=== PATIENT | female | born 2000 | race Caucasian/White ===

== ENCOUNTER 2025-07-08 17:32 | Inpatient (IN) ==
[2025-07-08] MEDS ORDERED: ONDANSETRON INJ 2 MG/ML 2 ML VIAL ONE (18:22)
[2025-07-08] MEDS ORDERED: ROCURONIUM BROMIDE 10 MG/ML 5 ML VIAL IV ONE (18:22)
[2025-07-08] MEDS ORDERED: LIDOCAINE 2% 20 MG/ML 5 ML SYR IV ONE (18:22)
[2025-07-08] MEDS ORDERED: MIDAZOLAM HCL 1 MG/ML 2ML VIAL ONE (18:22)
[2025-07-08] MEDS ORDERED: LIDOCAINE 2% 2 ML VIAL/AMP(20MG/ML) INFIL ONE (18:22)
[2025-07-08] MEDS ORDERED: DEXAMETHASONE SOD INJ 4 MG/ML VIAL ONE (18:22)
[2025-07-08] MEDS ORDERED: PROPOFOL IV EMULSION 10 MG/ML 20 ML VIAL IV ONE (18:22)
--- NOTE | 2025-07-08 18:43 | Anesthesiology Consultation ---
Date of Service July 08, 2025 Assessment & Plan (1) Encounter for pre-operative examination: Chart Review Chart Review: Acceptable Risk for Surgery and Patient NOT seen in Pre Admission Testing Consults Requested none History Surgery Operation Date: 07/08/25 19:30 Proposed Procedures p Laparoscopic Appendectomy - Steven Pedroza DO, FACS Allergies Allergy/AdvReac Type Severity Reaction Status Date / Time No Known Allergies Allergy Verified 02/02/25 17:02 Medications Home Medications Medication Instructions Recorded Confirmed Last Taken cyclobenzaprine 10 mg tablet 10 mg PO TID PRN muscle spasm #15 12/09/24 02/02/25 Unknown tabs Past Medical History Medical History No significant past medical history Past Surgical History Surgical History No significant past surgical history Social History Smoking Status: Never smoker
[2025-07-08] MEDS ORDERED: ONDANSETRON INJ 2 MG/ML 2 ML VIAL IV PRN ×2 (19:21→21:21)
[2025-07-08] MEDS ORDERED: ATROPINE SULFATE 0.1 MG/ML 10ML SYR IV PRN (19:21)
--- NOTE | 2025-07-08 19:23 | History & Physical Report ---
Date of Service July 08, 2025 Assessment & Plan (1) Appendicitis: Plan: Due to the patient's clinical presentation and findings on CT scan she will be admitted to the surgical service proceeding as follows: Will maintain n.p.o. status for the present time Will hydrate with IV fluids Will provide analgesics and antiemetics as needed Will tentatively plan on having the patient undergo an appendectomy with Dr. Pedroza of abdomen if history of general surgery this evening. 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 She says that the pain began yesterday on 07/07/2025. She notes that the pain is generalized throughout her abdomen but is most severe in the right lower quadrant. She has had nausea and vomiting but denies any fevers, shakes, or chills. She notes that she has never had abdominal surgery in the past. Concerning past medical history patient says that she is treated for bronchopulmonary dysplasia, asthma, vitamin D deficiency, and iron deficiency. Concerning past surgical history she has never had surgery before Concerning social history she denies smoking Concerning family history she denies any family history of diabetes While at [facility] the patient had labs and imaging performed. A CT scan of the abdomen pelvis showed the patient had gallstones without evidence of cholecystitis. She had an inflamed appendix measuring approximately 10 mm with concern for acute appendicitis. Labs included CBC white blood cell count was elevated at 7.4. Hemoglobin and hematocrit were 14.1 and 42.2. Platelet count is 262,000. Chemistry profile showed sodium of potassium 139 and 3.9. BUN and creatinine were 13 and 0.8. A test was noted to be negative At the time of my interview she was resting comfortably in bed and she was in no distress Allergies Allergy/AdvReac Type Severity Reaction Status Date / Time No Known Allergies Allergy Verified 02/02/25 17:02 Home Medications Medication Instructions Recorded Confirmed Type cyclobenzaprine 10 mg tablet 10 mg PO TID PRN muscle spasm #15 02/17/25 04/13/25 Rx tabs Past Med/Surg History Problem List (Updated 07/08/25 @ 19:22 by Jonn Newman PA-C) Appendicitis Encounter for pre-operative examination Constipation (Acute) Blood in stool (Acute) Medical History No significant past medical history Surgical History No significant past surgical history Social History Smoking Status: Never smoker Preferred Language: Afghan current occupational status: student Feels Safe at Home: Yes Review of Systems Review of Systems: All systems reviewed & are unremarkable except as noted in HPI & below Physical Exam Constitutional: WD/WN, vitals as above Eyes: no conjunctival abnormality ENMT: Ears: no hearing impairment and no external ear abnormality Mouth: no oropharynx abnormality Neck: trachea midline Respiratory: normal respiratory effort; no respiratory distress and no labored breathing Cardiovascular: Rate/Rhythm: regular rate and regular rhythm Gastrointestinal (Abdomen): Abdomen is soft without rigidity, distention, rebound tenderness, or guarding. Patient did have some generalized pain with palpation is greatest in the right lower quadrant McBurney's point Musculoskeletal: No calf tenderness Skin: no rashes Neurologic: moves all extremities Psychiatric: A+Ox3, euthymic affect Supervising Physician Co-Signing Physician Notes Patient seen and examined, labs and imaging reviewed, agree with above. 25-year-old female started with abdominal pain yesterday morning presented to urgent care today, referred to [facility] emergency department where CT scan revealed acute appendicitis. She was transferred to [facility] for surgical care. On exam she is afebrile with stable vitals. Her abdomen is soft, tender to palpation in the right lower quadrant with Lon's point with localized guarding. WBC 7. CT scan personally viewed and interpreted agree with the assessment of dilated and inflamed appendix consistent with acute appendicitis without evidence of perforation measuring up to 1 cm in size. She does have some mild thickening of the bowel but may be reactive versus enteritis or IBD. Acute appendicitis without perforation Plan for laparoscopic appendectomy Risk discussed to include but not limited bleeding, infection, normal appendix, conversion open, demonstrating structures, need for future more extensive surgery, abscess, the risk of anesthesia Patient will stay overnight postop, likely discharge in the morning PG Care Time/CCT Total # of Minutes Spent Total Time Spent with Patient: Total time spent is greater than 50% in coordination of care (as documented) at patient's floor/unit and/or counseling patient: Coding Level of Care Code 36915 INT INP/OBS CARE 3/75MIN Diagnoses Appendicitis K37
[2025-07-08] MEDS ORDERED: PHENYLEPHRINE 100MCG/ML 5ML SYR ONE (20:06)
[2025-07-08] MEDS ORDERED: SUGAMMADEX SODIUM 200 MG/2 ML VIAL IV ONE (20:10)
[2025-07-08] MEDS: BUPIVACAINE 0.5 % 5 MG/1 ML MPF 30ML VIAL ONE (20:26)
--- NOTE | 2025-07-08 20:28 | Operative Report ---
PG Post Operative Report Pre & Post Diagnosis Operation Date: 07/08/25 19:30 Pre-Op Diagnosis: Acute Appendicitis Post-Op Diagnosis: Acute Appendicitis I identified the patient and participated in the time-out.: Yes Procedure Operation Date: 07/08/25 19:30 Actual Procedures p Laparoscopic Appendectomy(Not Applicable) - Steven Pedroza DO, FACS Surgeon Steven Pedroza DO, FACS Flight Attendant/Inflight Supervisor Nik Newman Estimated Blood Loss 5 Findings Consistent with Post-Op Diagnosis Acute, nonperforated appendicitis. Specimens Appendix Anesthesia Type General Complications none Disposition Accompanied Patient To Recovery: No Disposition: Recovery Room Indications 25-year-old female presented to [facility] emergency department with signs symptoms of acute appendicitis confirmed by CT scan, she was transferred to [facility] for further surgical care. Plan for laparoscopic appendectomy. The risks of the procedure were discussed, all questions were answered, and the patient agreed to proceed with surgery as planned. Description of Procedure The patient was properly identified, consented, and taken to the operating room where she was placed in the supine position. General endotracheal anesthesia was induced. SCDs and a safety belt were placed. Preoperative antibiotics were administered. A Stovall catheter was not placed. The patient's abdomen was prepped and draped in the standard sterile fashion. Surgical timeout was performed and all parties were in agreement that this was the correct patient and procedure to be performed and we continued as planned. A curvilinear infraumbilical incision was made with electrocautery and deepened down to the fascia with blunt dissection. The base of the umbilicus was grasped with a Miranda and elevated towards the ceiling. An incision was made in the midline fascia with a knife and entry into the peritoneum was confirmed. Stay suture of 0 Vicryl was placed and a Muñoz trocar was inserted. The abdomen was insufflated with carbon dioxide which the patient tolerated without incident. The laparoscope was inserted and no damage from initial trocar placement was noted, no gross abnormalities were noted within the 4 quadrants the abdomen. 5 mm ports were then placed in the left lower quadrant with care not to damage the epigastric vessels, and in the suprapubic midline with care not to damage the bladder. The patient was placed in Trendelenburg position and rotated towards the left. The small bowel was swept away from the right lower quadrant. The cecum was grasped with an atraumatic grasper exposing the appendix. The appendix was dilated and moderately inflamed and there was no evidence of perforation. There was minimal reactive fluid in the pelvis. A window was created between the base of the appendix and the mesoappendix. A montenegro loaded endoscopic stapler was then used to divide the appendix at its base. There was some mild inflammation at the appendiceal base and at the cecum. However, the staple closed easily. A [place] load was then used to divide the mesoappendix. There was some bleeding from the staple line which was controlled with electrocautery. Hemostasis was good. The appendix was placed in an Endo Catch bag and removed through the umbilical port site. The right lower quadrant and pelvis was irrigated and hemostasis was found to be good. 5 mm trochars were removed under direct visualization and the abdomen was allowed to collapse. The umbilical port site fascia was closed with 0 Vicryl suture. The wound was irrigated, and the skin of all ports was closed with 4-0 Monocryl subcuticular sutures. Dermabond was placed over the wounds. The patient was extubated in the operating room and taken to the PACU where she recovered without apparent incident. All sponge, instrument and needle counts were correct at the conclusion of the procedure. The patient tolerated the procedure well. The physicians recruitment and outreach assistant was present and scrubbed for the entire the case. He was critical in positioning the patient, prepping and draping, retraction and exposure, driving the laparoscope, removal of the appendix, closure the incisions, placement the dressings. I attest to the content of the Intraoperative Record and any orders documented therein. Any exceptions are noted below.
--- NOTE | 2025-07-08 21:01 | Anesthesiology Progress Note ---
Date of Service July 08, 2025 Anesthesia Post Procedure Vital Signs Vital Signs: Temp Pulse Resp BP Pulse Ox O2 Del Method O2 Flow Rate 07/08/25 20:55 81 17 126/57 L 97 Room Air 07/08/25 20:45 93 H 17 123/86 100 Oxymask 4 07/08/25 20:38 97.2 F L 63 19 108/56 L 100 Oxymask 4 Pain Intensity Abdomen: Pain Intensity: 4 Transfer of Care Handoff Completed per policy Notes Mental Status: alert / awake / arousable and participated in evaluation Patient Amnestic to Procedure: Yes Nausea / Vomiting: adequately controlled Pain: adequately controlled Airway Patency, RR, SpO2: stable & adequate BP & HR: stable & adequate Hydration State: stable & adequate Anesthetic Complications: no major complications apparent and Pt Satisfied with anesthetic care
[2025-07-08] MEDS: MoRPHine SULFATE 4 MG/ML 1 ML CARP\\VIAL IV PRN (21:37)
[2025-07-08] MEDS: SODIUM CHLORIDE 0.9% 1,000 ML IV SCH (21:39)
[2025-07-08] MEDS: CYCLOBENZAPRINE HCL 10 MG TAB PO PRN (23:08)
[2025-07-08] MEDS: cefOXitin 2,000 MG in DEXTROSE 5 % MINI-B 50 ML IV SCH (23:10)
[2025-07-09] MEDS: SODIUM CHLORIDE 0.9% 500 ML IV ONE (03:59)
--- NOTE | 2025-07-09 04:11 | Communication Note ---
Date of Service: July 09, 2025 I was notified by nursing staff at approximately 4:00 AM the patient was hypotensive with a blood pressure of approximately 78/43. I reported the bedside to evaluate the patient. She is easily arousable. The patient denies any lightheadedness or dizziness and says that she feels well. She does offer that her blood pressure typically runs low as an outpatient. She further states that because of her underlying appendicitis/abdominal pain earlier today she had very little if any oral intake. I discussed with nursing staff and the patient did receive a dose of morphine since arrival to the floor at approximately 9:40 PM. The patient also received a 10 mg dose of p.o. Flexeril at approximately 11:00 PM. I suspect the patient's hypotension is combination of effects from anesthesia, pain medications, and dehydration as she has had little oral intake throughout the day. She does have maintenance fluids runningWill give a 500 cc bolus of fluid and increase her maintenance fluid rate to 100 cc and see how she does. In addition we will check some laboratories including a CBC and a PRP. Results of CBC has been obtained. White blood cell count is normal. Patient's hemoglobin and hematocrit are 11.2 and 34.3. Although these values are decreased from baseline there may be an element of pain at dilution from IV fluids she is receiving. I was messaged by nursing staff that patient's blood pressure, after receiving a bolus of intravenous fluids has improved to 91/56. We will continue to monitor closely
[2025-07-09 04:40] LABS: Hematocrit (blood only) 34.3 % (37.0-47.0); Hemoglobin 11.2 g/dl (12.0-16.0); Immature Granulocytes # (auto) 0.03 K/uL (0.01-0.20); Immature Granulocytes % (auto) 0.5 %; Mean Corpuscular Hemoglobin 26.7 pg (25.0-34.0); Mean Corpuscular Volume 81.7 fL (80.0-100.0); Platelet Count 196 K/uL (130-400); RDW Standard Deviation 39.3 fL (36.4-46.3); Red Blood Count 4.20 M/uL (4.20-5.40); White Blood Count 6.37 K/ul (4.8-10.8)
[2025-07-09 04:55] LABS: Anion Gap 5.0 (3-11); Blood Urea Nitrogen 14.0 mg/dl (6-23); Calcium 8.4 mg/dl (8.6-10.3); Carbon Dioxide 24.0 mmol/L (21-32); Chloride 108.0 mmol/L (98-107); Creatinine Clr Calc Pharmacy 94.4 ml/min; Glucose 118.0 mg/dl (70-99(Fasting)); Potassium 4.5 mmol/L (3.5-5.1); Sodium 137.0 mmol/L (136-145)
[2025-07-09 07:12] VITALS: RESP 16
[2025-07-09] MEDS: ACETAMINOPHEN 1,000 MG/100 ML VIAL IV PRN (07:31)
[2025-07-09] MEDS: KETOROLAC TROMETHAMINE 15 MG/ML VIAL IV ONE (08:00)
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
[2025-07-09] MEDS: KETOROLAC TROMETHAMINE 15 MG/ML VIAL IV PRN (14:00)
[2025-07-09] MEDS: SIMETHICONE 80 MG CHEW PO ONE (15:37)
[2025-07-09] MEDS: ACETAMINOPHEN 1,000 MG/100 ML VIAL IV SCH (15:42)
[2025-07-09] MEDS: SIMETHICONE 80 MG CHEW PO PRN (22:32)
[2025-07-10 07:21] VITALS: BP 106/70; PULSE 65; TEMP 97.9; O2SAT 96
--- NOTE | 2025-07-10 07:47 | Surgery Progress Note ---
Date of Service July 10, 2025 Assessment & Plan (1) Appendicitis: Plan: POD#2 laparoscopic appendectomy vitals are stable this AM pain in neck and ribs and abdomen are improved from yesterday she denies nausea/vomiting encourage pt to ambulate this AM she is stable for discharge after breakfast d/c instructions reviewed, follow up with dr. sharp in the office in 1-2 weeks Admission and Anticipated Discharge Date Admission Date: July 08, 2025 Supervising Physician Co-Signing Physician Notes Patient seen and examined, labs reviewed, agree with above. POD #2 laparoscopic appendectomy. Kept overnight for continued neck and abdominal discomfort. Still with some abdominal pain but this is significantly improved. On exam she is afebrile stable vitals. Her abdomen is soft, nondistended, appropriately tender to palpation. Incisions without infection. DC to home. Wound care instructions and activity restrictions reviewed. Follow-up with general surgery in 2 weeks. Return precautions given. Subjective Patient reports feeling better than yesterday. She was able to get some sleep last night. She is tolerating some food without n/v. Pain better controlled. She is voiding. Physical Exam Physical Exam: awake/alert, no distress Respiratory: normal respiratory effort Gastrointestinal (Abdomen): Inspection/Auscultation: + abdominal surgical incision (c/d/i with dermabond) Percussion/Palpation: + abdomen tender (expected janee incisional discomfort to palpation ) and abdomen soft Results & Data Vital Signs (Past 12 Hours) Vital Signs Temp Pulse Resp BP Pulse Ox O2 Del Method 07/10/25 07:20 97.9 F 65 16 106/70 96 Room Air 07/09/25 23:45 97.5 F L 55 L 16 102/66 97 Room Air PG Care Time/CCT Total # of Minutes Spent Total Time Spent with Patient: Total time spent is greater than 50% in coordination of care (as documented) at patient's floor/unit and/or counseling patient: Coding Level of Care Code 62202 Post Operative Follow-Up Diagnoses Appendicitis K37
--- NOTE | 2025-07-16 20:27 | Discharge Summary ---
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 secondary abdominal pain. She says that the pain began yesterday on 07/07/2025. She notes that the pain is generalized throughout her abdomen but is most severe in the right lower quadrant. She has had nausea and vomiting but denies any fevers, shakes, or chills. She notes that she has never had abdominal surgery in the past. Concerning past medical history patient says that she is treated for bronchopulmonary dysplasia, asthma, vitamin D deficiency, and iron deficiency. Concerning past surgical history she has never had surgery before Concerning social history she denies smoking Concerning family history she denies any family history of diabetes While at [facility] the patient had labs and imaging performed. A CT scan of the abdomen pelvis showed the patient had gallstones without evidence of cholecystitis. She had an inflamed appendix measuring approximately 10 mm w ith concern for acute appendicitis. Labs included CBC white blood cell count was elevated at 7.4. Hemoglobin and hematocrit were 14.1 and 42.2. Platelet count is 262,000. Chemistry profile showed sodium of potassium 139 and 3.9. BUN and creatinine were 13 and 0.8. A test was noted to be negative At the time of my interview she was resting comfortably in bed and she was in no distress Discharge Data Procedures Performed Operation Date: 07/08/25 19:30 Actual Procedures p Laparoscopic Appendectomy(Not Applicable) - Steven Pedroza DO, [facility] Hospital Course (1) Appendicitis: Date of admission: 07/08/2025 Date of discharge: 07/10/2025 This is a 25-year-old female who presented to [facility] secondary abdominal pain. CT scan abdomen pelvis showed findings consistent with acute appendicitis. She was transferred to [facility] under the care of Dr. Pedroza of [facility] physician with general surgeon. On the day of admission he performed a laparoscopic appen dectomy. The patient was kept in the hospital until 07/10/2025 due to pain control issues but she was deemed stable for discharge home on 07/10/2025. She was instructed on appropriate wound care, diet, and activity. She was instructed to follow-up Dr. Pedroza in approximately 2 weeks at the clinic. Coding Level of Care Code 11469 IN/OBS DISCH 30 MIN/LESS Diagnoses Appendicitis K37
== END 2025-07-10 14:50 | disposition home or self-care (01) | DRG 397 ==
LOC: 3E → OBSVTOIN 20:35